=== PATIENT | male | born 1985 | race Caucasian/White ===

== ENCOUNTER 2023-11-08 15:25 | Emergency (ER) | payer MEDICARE, MEDICAID ==
[~2023-11-08] VITALS: Ht 170.2 cm; Wt 136.4 kg
[2023-11-08 15:30] VITALS: TEMP 98.5
[2023-11-08] MEDS ORDERED: LISI-893 PO (15:33)
[2023-11-08] MEDS ORDERED: GLIP5TAB16 PO (15:33)
[2023-11-08] MEDS ORDERED: MONT-35 PO (15:33)
[2023-11-08] MEDS ORDERED: EMPA10TA3 PO (15:33)
[2023-11-08] MEDS ORDERED: CEPH-558 PO (17:12)
[2023-11-08] MEDS ORDERED: MUPI1OIN5 TP (17:12)
[2023-11-08 17:20] VITALS: BP 132/85; PULSE 102; RESP 16
== END 2023-11-08 17:21 | disposition home or self-care (01) ==
LOC: EMS 15:25
DX: S70.211A Abrasion, right hip, initial encounter (principal); L08.9 Local infection of the skin and subcutaneous tissue, unspecified; E11.9 Type 2 diabetes mellitus without complications; I10 Essential (primary) hypertension; J45.909 Unspecified asthma, uncomplicated; X58.XXXA Exposure to other specified factors, initial encounter; Y93.89 Activity, other specified; Y92.89 Other specified places as the place of occurrence of the external cause; Y99.8 Other external cause status
CPT/HCPCS: 82962; 99283